=== PATIENT | female | born 1960 ===

== ENCOUNTER → 2018-11-20 | Outpatient (REF) ==
--- NOTE | 2018-11-20 21:46 | REP ---
Clinical: Degenerative pain Technique: AP, lateral, bilateral oblique views right hand . Findings: Generalized age-related changes are appreciated. No overt osteoarthritic degenerative findings noted. No acute fracture dislocation. Impression: Essentially age-appropriate examination. Electronically Signed by Sriram Ware MD 11/20/2018 09:38 P
--- NOTE | 2018-11-20 22:26 | REP ---
Clinical: Pain and disability. Technique: AP, lateral, and coned-down views of the lumbosacral spine. Findings: Mild/early moderate multilevel degenerative changes include endplate sclerosis with minimal disc space narrowing and very early marginal spurring. Hypertrophic facet changes are also identified at L3-L5. No obvious acute fracture / compression injury or subluxation. L5 spondylolysis cannot be excluded. Impression: Mild/early moderate multilevel degenerative changes Electronically Signed by Sriram Ware MD 11/20/2018 10:18 P
== END ==
LOC: M SMT 14:05
PROVIDERS: ATTEND Internal Medicine
DX: Z02.71 Encounter for disability determination (principal)